=== PATIENT | female | born 1995 | race Caucasian/White ===

== ENCOUNTER → 2019-01-16 | Outpatient (CLI) | payer OTHER ==
[2019-01-16 19:05] LABS: BASO % 0.3 % (0.0-1.0); EOS # 0.1 10^3/uL (0.0-0.50); EOS % 0.5 % (0.0-3.0); HEMATOCRIT 38.5 % (36.0-47.0); HEMOGLOBIN 12.7 g/dl (12.0-15.5); LYMPH # 1.9 10^3/uL (1.5-6.5); LYMPH % 16.2 % (24.0-44.0); MONO # 0.8 10^3/uL (0.0-0.8); MONO % 7.2 % (0.0-5.0); NEUTROPHILS # 8.8 10^3/uL (1.8-7.7); NEUTROPHILS % 75.5 % (36.0-66.0); PLATELET COUNT, AUTOMATED 302 10^3/uL (150-450); RED BLOOD COUNT 4.23 10^6/uL (4.00-5.40); WHITE BLOOD COUNT 11.6 10^3/uL (4.0-10.0)
[2019-01-16 20:24] LABS: CHLAMYDIA DNA AMPLIFICATION NEGATIVE (NEGATIVE); GC DNA AMPLIFICATION NEGATIVE (NEGATIVE)
[2019-01-18 11:24] LABS: HEPATITIS C VIRUS ABY INDEX < 0.0 INDEX (<0.8); HIV 1&2 SCREEN CENTAUR NEGATIVE (NEGATIVE); RUBELLA IgG QUALITATIVE IMMUNE (IMMUNE)
== END ==
LOC: M SMT 14:54
PROVIDERS: ATTEND Specialist
DX: Z34.81 Encounter for supervision of other normal pregnancy, first trimester (principal); Z36.89 Encounter for other specified antenatal screening

== ENCOUNTER → 2019-03-20 | Outpatient (CLI) | payer OTHER | LOC: M SMT 11:42 | PROVIDERS: ATTEND Advanced Practice Midwife | DX: Z36.89 Encounter for other specified antenatal screening (principal) ==

== ENCOUNTER → 2019-03-20 | Outpatient (CLI) | payer OTHER ==
[~2019-03-20] MED LIST: MAPA500T2 PO; PRENTAB9 PO; TUMS500C PO; TYLETAB14 PO
--- NOTE | 2019-03-20 16:59 | REP ---
OB sonography: HISTORY: Supervision of . For anatomy. Findings: Scanning through the gravid uterus demonstrates a viable single intrauterine gestation in a breech lie. motion is observed and heart rate is recorded at 146 beats per minute. A posterior placenta is seen grade 0 without evidence of previa. Amniotic fluid is subjectively normal. Closed cervical length measures 3.9 cm, viewed transabdominally. No extrauterine abnormalities observed. Exam quality was inhibited to some degree by position. An eccentric umbilical cord insertion into the placenta is seen. Significant abnormality in the heart is suspected. A normal left ventricle cannot be seen suggesting the possibility of hypoplastic left heart syndrome. We were unable image a normal aortic arch. Question atrial septal defect. spine is less than optimally seen due to position. Mild bilateral renal pelviectasis is observed. The following anatomic structures are identified and felt to be unremarkable: cranium, choroid plexus, cavum, cerebellum and posterior fossa, face and profile, lungs, diaphragm, left-sided stomach, abdominal wall cord insertion, three-vessel umbilical cord, urinary bladder, upper and lower extremities. Biometry chart: BPD 4.1 cm = 18 weeks 3 days HC 14.6 cm = 17 weeks 5 days AC 13.8 cm = 19 weeks 2 days FL 2.5 cm = 17 weeks 3 days HL 2.6 cm = 18 weeks 1 day CD 1.8 cm = 17 weeks 6 days HC/AC ratio 1.06 (1.07-1.26. Cephalic index normal 0.79. Estimated weight 236 grams, 0 pounds 8 ounces, 54th percentile for 18 weeks 1 day. Impression: 1. Viable single intrauterine gestation at 18 weeks 1 day by today's composite sonographic criteria. YEIMY by today's sonography August 20, 2019. 2. 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 A normal aortic arch could not be imaged. Question ASD. Minimal bilateral renal pelviectasis is seen. Recommend echocardiography. Electronically Signed by Frantz Emerson MD 03/20/2019 05:03 P
== END ==
LOC: M RAD 13:32
PROVIDERS: ATTEND Advanced Practice Midwife
DX: Z36.3 Encounter for antenatal screening for malformations (principal); Z36.89 Encounter for other specified antenatal screening; Z3A.18 18 weeks gestation of pregnancy

== ENCOUNTER 2019-04-12 09:44 | Outpatient (CLI) | payer OTHER ==
[~2019-04-12] VITALS: Ht 167.6 cm; Wt 81.2 kg
[2019-04-12 10:03] VITALS: BP 120/56
[2019-04-12] MEDS ORDERED: MAPA500T2 PO (10:21)
[2019-04-12] MEDS ORDERED: TUMS500C PO (10:21)
[2019-04-12] MEDS ORDERED: PRENTAB9 PO (10:21)
[2019-04-12 10:38] LABS: APPEARANCE, URINE CLEAR (CLEAR); BACTERIA, URINE AUTO NEGATIVE (NEGATIVE); BILIRUBIN, URINE AUTO NEGATIVE (NEGATIVE); BLOOD, URINE BLOOD NEGATIVE (NEGATIVE); COLOR, URINE YELLOW (YELLOW); GLUCOSE, URINE (UA) AUTO NEGATIVE (NEGATIVE); KETONE, URINE AUTO NEGATIVE (NEGATIVE); LEUKOCYTE ESTERASE, URINE AUTO NEGATIVE (NEGATIVE); MUCUS, URINE SMALL (NEGATIVE); NITRITE, URINE AUTO NEGATIVE (NEGATIVE); PROTEIN, URINE AUTO NEGATIVE (NEGATIVE); RBC, URINE AUTO 0 /HPF (0-3); SQUAMOUS EPITHELIAL CELL UR AU 2 /HPF (0-6); UROBILINOGEN, URINE AUTO 0.2 mg/dL (0.0-2.0); WBC, URINE AUTO 2 /HPF (0-3)
--- NOTE | 2019-04-12 11:30 | IPNPDOC ---
Text Note Date of Service The patient was seen on 04/12/19. NOTE Subjective: Patient is a 23-year-old female who is a at 21.2 weeks gestation with an YEIMY of 08/21/19 based off of her LMP and consistent with her first trimester ultrasound. She initiated care in her first trimester with [facility]. Her has been complicated by multiple cardiac anomalies. She is now a patient of the Center. She presents today with complaints of of RLQ pain that started at 0400 this morning. She reports the pain is constant and started suddenly. She reports the pain is moderate on a scale of 6/10 localized in one area and radiates down the front of her leg. She states that walking makes her pain worse. She took Tylenol 1000 mg this morning at 0900 without any relief. She reports active movement. She denies leaking of fluid, contractions, or vaginal bleeding. Medical history: varicella as a child Surgical history: appendectomy Family history: noncontributory Social history: . Non-smoker. No history of alcohol or drug use or abuse. No history of STD. Objective: VS and ultrasound: see below. FHR is 144-156 via doppler. Contractions: none. A+Ox3; Respiratory: regular rate with no use of accessory muscles. Abdomen: gravid with fundus at her umbilicus. Soft to palpation. Palpation reveals slight tenderness of RLQ. No CVA tenderness. No ecchymosis or erythema noted at area or on abdomen or back. Assessment: IUP at 21.2 weeks gestation, RLQ pain consistent with round ligament pain. Plan: Urine obtained. Ultrasound ordered. Reviewed finding with patient. Encouraged warm tub, warm packs, stretching, increased fluid, and pain management. She was sent 10 tablets of Tylenol with codeine to help with pain management. Her next appointment at the [facility] is in April 25. Patient encouraged to follow-up with her appointment. Patient to call office if pain increases and is not managed by comfort measures, vaginal bleeding, decreased movement, leaking of fluid, contractions, or fever. Patient discharged to home with . VS,Fishbone, I+O VS, Fishbone, I+O Vital Signs Date Time Temp Pulse Resp B/P (MAP) Pulse Ox O2 Delivery O2 Flow Rate FiO2 04/12/19 10:03 88 120/56 (77) 5/31/19 10:02 99.1 20 OB ULTRASOUND: Real-time sonographic evaluation of the gravid uterus is performed. There is a single living intrauterine gestation with an estimated gestational age reportedly of 21 weeks 3 days, EDC 08/20/2019. Cervix is closed and measures 3.4 cm in length. heart rate is 156 beats per minute. position is vertex. Placenta is posterior with no previa or abruption. Amniotic fluid appears within normal limits for gestational age. Anatomical survey was not requested. Right ovary measures 2.9 x 2.1 x 2.9 cm and left ovary 3.0 x 2.0 x 2.1 cm. There is no torsion bilaterally, resistive index right ovary 0.63 and left ovary 0.62. There is eccentric placental cord insertion incidentally noted. DEQUAN ROBLES CNM April 12, 2019 11:30
[2019-04-12] MEDS ORDERED: TYLETAB14 PO (13:05)
--- NOTE | 2019-04-12 13:40 | REP ---
OB ULTRASOUND: Real-time sonographic evaluation of the gravid uterus is performed. There is a single living intrauterine gestation with an estimated gestational age reportedly of 21 weeks 3 days, EDC 08/20/2019. Cervix is closed and measures 3.4 cm in length. heart rate is 156 beats per minute. position is vertex. Placenta is posterior with no previa or abruption. Amniotic fluid appears within normal limits for gestational age. Anatomical survey was not requested. Right ovary measures 2.9 x 2.1 x 2.9 cm and left ovary 3.0 x 2.0 x 2.1 cm. There is no torsion bilaterally, resistive index right ovary 0.63 and left ovary 0.62. There is eccentric placental cord insertion incidentally noted. Electronically Signed by Sergio Church MD 04/12/2019 04:17 P
== END 2019-04-12 13:09 | disposition home or self-care (01) ==
LOC: M LDO 09:44
PROVIDERS: ATTEND Advanced Practice Midwife
DX: O26.892 Other specified pregnancy related conditions, second trimester (principal); R10.2 Pelvic and perineal pain; Z3A.21 21 weeks gestation of pregnancy
CPT/HCPCS: 76815; 81001; 93976; G0378; G0463

== ENCOUNTER → 2019-05-28 | Outpatient (CLI) | payer OTHER ==
[2019-05-28 11:38] LABS: BASO % 0.1 % (0.0-1.0); EOS % 0.3 % (0.0-3.0); HEMATOCRIT 33.4 % (36.0-47.0); HEMOGLOBIN 10.9 g/dl (12.0-15.5); LYMPH # 1.3 10^3/uL (1.5-6.5); LYMPH % 14.2 % (24.0-44.0); MEAN CORPUSCULAR HEMOGLOBIN 29.9 pg (27.0-33.0); MEAN CORPUSCULAR HGB CONC 32.6 g/dl (32.0-36.5); MEAN CORPUSCULAR VOLUME 91.5 fl (80.0-96.0); MONO # 0.6 10^3/uL (0.0-0.8); MONO % 6.3 % (0.0-5.0); NEUTROPHILS # 7.1 10^3/uL (1.8-7.7); NEUTROPHILS % 78.5 % (36.0-66.0); PLATELET COUNT, AUTOMATED 296 10^3/uL (150-450); RED BLOOD COUNT 3.65 10^6/uL (4.00-5.40)
[2019-05-28 11:59] LABS: GLUCOSE CHALLENGE TEST 1 HOUR 67 MG/DL (LESS THAN 140)
[2019-05-29 10:58] LABS: RUBELLA IgG QUALITATIVE IMMUNE (IMMUNE)
[2019-05-29 11:27] LABS: HEPATITIS C VIRUS ABY INDEX 0.1 INDEX (<0.8)
[2019-05-29 11:28] LABS: HIV 1&2 SCREEN CENTAUR NEGATIVE (NEGATIVE)
== END ==
LOC: M LAB 08:34
PROVIDERS: ATTEND Midwife
DX: O35.8XX0 Maternal care for other (suspected) fetal abnormality and damage, not applicable or unspecified (principal); Z3A.00 Weeks of gestation of pregnancy not specified

== ENCOUNTER → 2019-08-27 | Outpatient (REF) | payer OTHER | LOC: M SFHCLERA 19:03 | PROVIDERS: ATTEND Physician Assistant | DX: N89.8 Other specified noninflammatory disorders of vagina (principal) | CPT/HCPCS: 81002; 81025; 87086; G0463 ==

== ENCOUNTER 2019-12-24 21:12 | Emergency (ER) | payer OTHER ==
[~2019-12-24] VITALS: Ht 167.6 cm; Wt 84.1 kg
[2019-12-24] MEDS ORDERED: WELLTAB38 PO (21:21)
[2019-12-24 22:02] LABS: HEMATOCRIT 41.1 % (36.0-47.0); HEMOGLOBIN 13.7 g/dl (12.0-15.5); MEAN CORPUSCULAR HGB CONC 33.3 g/dl (32.0-36.5); MEAN CORPUSCULAR VOLUME 89.9 fl (80.0-96.0); PLATELET COUNT, AUTOMATED 312 10^3/uL (150-450); RED BLOOD COUNT 4.57 10^6/uL (4.00-5.40); WHITE BLOOD COUNT 9.5 10^3/uL (4.0-10.0)
[2019-12-24 22:28] LABS: HCG, SERUM QUALITATIVE NEGATIVE (NEGATIVE)
[2019-12-24 22:32] LABS: ALBUMIN 4.3 GM/DL (3.2-5.2); ALT/SGPT 18 U/L (12-78); BILIRUBIN,TOTAL 0.3 MG/DL (0.2-1.0); BLOOD UREA NITROGEN 13 MG/DL (7-18); CARBON DIOXIDE LEVEL 28 MEQ/L (21-32); CHLORIDE LEVEL 105 MEQ/L (98-107); CK-MB VALUE MASS < 1.0 NG/ML (<3.6); CPK CREATINE PHOSPHOKINASE 157 U/L (26-192); CREATININE FOR GFR 0.94 MG/DL (0.55-1.30); GLOMERULAR FILTRATION RATE > 60.0 (>60); GLUCOSE, FASTING 85 MG/DL (70-100); MB/CK RELATIVE INDEX 0.64 (< OR =4); POTASSIUM SERUM 3.8 MEQ/L (3.5-5.1); SODIUM LEVEL 139 MEQ/L (136-145); TOTAL PROTEIN 7.1 GM/DL (6.4-8.2); TROPONIN I < 0.02 NG/ML (< 0.10)
[2019-12-25] MEDS ORDERED: NAPR-837 PO (00:14)
[2019-12-25] MEDS ORDERED: NAPROXEN 250 MG TAB PO ONE (00:15)
[2019-12-25] MEDS ORDERED: diphenhydrAMINE 25 MG CAP PO ONE (00:15)
[2019-12-25 00:23] VITALS: BP 155/90
--- NOTE | 2019-12-25 08:06 | REP ---
Clinical: Shortness of breath. Cough, . Comparison: None and . Technique: PA and lateral. Findings: The mediastinum and cardiac silhouette are normal. The lung freire are clear and without acute consolidation, effusion, or pneumothorax. The skeletal structures are intact and normal. Impression: 1. No acute cardiopulmonary process. Electronically Signed by Flip Talavera MD 12/25/2019 07:58 A
--- NOTE | 2019-12-25 20:05 | ECGEPIP ---
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
== END 2019-12-25 00:30 | disposition home or self-care (01) ==
LOC: M ED 21:12
DX: R07.89 Other chest pain (principal); T44.8X5A Adverse effect of centrally-acting and adrenergic-neuron-blocking agents, initial encounter; Y92.9 Unspecified place or not applicable; Y93.9 Activity, unspecified; I10 Essential (primary) hypertension
CPT/HCPCS: 71046; 80053; 82550; 82553; 84484; 84703; 85027; 93005; 99284; G0463

== ENCOUNTER → 2020-01-27 | Outpatient (REF) | payer OTHER ==
[~2020-01-27] MED LIST changes: +NAPR-837 PO; +WELLTAB38 PO
== END ==
LOC: M LAB REF 17:22
PROVIDERS: ATTEND Physician Assistant
DX: R30.0 Dysuria (principal)

== ENCOUNTER → 2020-02-18 | Outpatient (REF) | payer OTHER | LOC: M LAB REF 16:44 | PROVIDERS: ATTEND Family Medicine | DX: N76.0 Acute vaginitis (principal) ==

== ENCOUNTER → 2020-04-13 | Outpatient (REF) | payer OTHER | LOC: M LAB REF 17:35 | PROVIDERS: ATTEND Physician Assistant | DX: N76.0 Acute vaginitis (principal) ==